=== PATIENT | male | born 1965 | race Caucasian/White ===

== ENCOUNTER → 2018-08-19 | Outpatient (CLI) | payer OTHER ==
[2018-08-19 15:41] LABS: BUN/CREATININE RATIO 13; CREATININE SERUM 1.11 MG/DL (0.60-1.30); GFR ESTIMATED > 60
--- NOTE | 2018-08-19 16:10 | Diagnostic Imaging Report ---
PROCEDURE: US Venous Lower Ext Jose. TECHNIQUE: Multiple real-time grayscale images were obtained over the lower extremities in various projections, bilaterally. Additional duplex Doppler and color Doppler images were also obtained. INDICATION: Leg pain and swelling. FINDINGS: There are no prior studies available for comparison. There is generally good blood flow and compressibility at all levels. There is no sign of deep venous thrombosis. During the course of the exam, a 4.4 x 2.9 x 1.8 cm fluid collection containing a few internal echoes was seen in the popliteal fossa. Most likely, this is a Larson's cyst which has been slightly complicated by infection and/or hemorrhage. IMPRESSION: 1. There is no evidence for deep venous thrombosis. 2. There is a slightly complicated 4.4 x 2.9 x 1.8 cm Larson's cyst. Dictated by: Dictated on workstation # [id number]
--- NOTE | 2018-08-19 16:25 | Diagnostic Imaging Report ---
PROCEDURE: CT angiography of the chest with contrast. TECHNIQUE: Multiple contiguous axial images were obtained through the chest after uneventful bolus administration of intravenous contrast. 2D reconstructed CTA MIP acquisitions were also performed. Auto Exposure Controls were utilized during the CT exam to meet ALARA standards for radiation dose reduction. INDICATION: Hemoptysis. COMPARISON: There are no prior studies available for comparison. FINDINGS: The pulmonary arteries are not fully opacified, but there is no definite defect to suggest a pulmonary embolus. The aorta is not abnormally dilated, and there is no sign of a dissection. The heart size is within normal limits. There are no coronary artery calcifications evident. The lungs are generally clear and well aerated. There is no evidence for failure, pneumonia, or for a pleural effusion to indicate an acute abnormality. There is no parenchymal lung mass identified. There is no mediastinal or hilar adenopathy. The thyroid gland is partially obscured by streak artifact. There is no definite abnormality of the thyroid gland. The sections through the upper abdomen fail to show any sign of an acute abnormality. The liver is of lower density than usually seen. This does suggest fatty metamorphosis. The bone windows are unremarkable for a fracture or for a destructive lesion. IMPRESSION: There is no evidence for an acute cardiopulmonary abnormality. In particular, there is no sign of a dissection or of a pulmonary embolus. Dictated by: Dictated on workstation # [id number]
[2018-08-19 17:03] LABS: ABG BASE EXCESS 0.9 MMOL/L (-2.5-2.5); ABG OXYGEN SATURATION 97 % (94-100); ABG PCO2 37 MMHG (35-45); ABG PH 7.44 (7.37-7.43); ABG PO2 77 MMHG (79-93); ABG TCO2 25.9 MMOL/L (21.0-31.0)
[2018-08-19 17:10] LABS: ALLENS TEST YES-POS; INSPIRED O2 ROOM AIR; PATIENT TEMP 97.9; VENTILATOR NO
== END ==
LOC: RAD 14:56
PROVIDERS: ATTEND Nurse Practitioner Family
DX: J30.9 Allergic rhinitis, unspecified (principal); G47.10 Hypersomnia, unspecified; R04.2 Hemoptysis; M79.89 Other specified soft tissue disorders
CPT/HCPCS: 36415; 71275; 82565; 82805; 84520; 93970

== ENCOUNTER 2018-08-23 12:53 | Outpatient (CLI) | payer OTHER ==
[~2018-08-23] VITALS: Ht 190.5 cm; Wt 115.7 kg
[2018-08-23] MEDS ORDERED: LISI40TA PO (13:11)
[2018-08-23] MEDS ORDERED: METH-288 PO (13:11)
[2018-08-23] MEDS ORDERED: MELO15TA39 PO (13:11)
[2018-08-23] MEDS ORDERED: OMG1KC PO (13:11)
[2018-08-23] MEDS ORDERED: MELA1TAB27 PO (13:11)
[2018-08-23] MEDS ORDERED: DULO30CA48 PO (13:11)
== END 2018-08-23 13:12 ==
LOC: PREOP 12:53
PROVIDERS: ATTEND Internal Medicine Critical Care Medicine
DX: Z01.818 Encounter for other preprocedural examination (principal)

== ENCOUNTER 2018-08-29 09:10 | Day surgery (SDC) | payer OTHER ==
[~2018-08-29] VITALS: Ht 190.5 cm; Wt 115.7 kg
[~2018-08-29 09:10] MED LIST: DULO30CA48 PO; LISI40TA PO; MELA1TAB27 PO; MELO15TA39 PO; METH-288 PO; OMG1KC PO
[2018-08-29] MEDS ORDERED: LIDOCAINE PF 2% 5 ML (XYLOCAINE) VIAL INJ ONE (09:11)
[2018-08-29] MEDS ORDERED: LIDOCAINE JELLY 2% 6 ML SYRINGE TOP ONE (09:11)
[2018-08-29] MEDS ORDERED: LIDOCAINE PF 1% 2 ML VIAL (OR ONLY) IJ ONE (09:11)
--- OUTSIDE RECORDS SUMMARY | 2018-08-29 09:13 | XMS REPORT | CCD ---
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 Name Role Phone FLOYD MURILLO, GISSELL Win Attphys M., TIN NASST S., LAURA NASST R., SARTHAK NASST Vital Signs Vital Sign Value Unit Weight Measured 265 lbs Height 75 in BMI (Body Mass Index) 33.12 kg/m^2 BSA (Body Surface Area) 2.52 m^2 BP Systolic 120 mmHg BP Diastolic 79 mmHg BP Systolic 127 mmHg BP Diastolic 84 mmHg BP Systolic 113 mmHg BP Diastolic 84 mmHg BP Systolic 113 mmHg BP Diastolic 84 mmHg BP Systolic 115 mmHg BP Diastolic 79 mmHg BP Systolic 120 mmHg BP Diastolic 71 mmHg BP Systolic 136 mmHg BP Diastolic 87 mmHg BP Systolic 132 mmHg BP Diastolic 76 mmHg BP Systolic 120 mmHg BP Diastolic 64 mmHg BP Systolic 108 mmHg BP Diastolic 60 mmHg BP Systolic 145 mmHg BP Diastolic 91 mmHg BP Systolic 153 mmHg BP Diastolic 100 mmHg Respiratory Rate 18 bpm Respiratory Rate 18 bpm Respiratory Rate 18 bpm Respiratory Rate 18 bpm Respiratory Rate 18 bpm Respiratory Rate 20 bpm Respiratory Rate 18 bpm Respiratory Rate 18 bpm Respiratory Rate 20 bpm Respiratory Rate 20 bpm Respiratory Rate 18 bpm Respiratory Rate 16 bpm Heart Rate 94 bpm Heart Rate 81 bpm Heart Rate 86 bpm Heart Rate 86 bpm Heart Rate 96 bpm Heart Rate 78 bpm Heart Rate 72 bpm Heart Rate 81 bpm Heart Rate 98 bpm Heart Rate 94 bpm Heart Rate 78 bpm Heart Rate 60 bpm O2 % BldC Oximetry 97 % O2 % BldC Oximetry 98 % O2 % BldC Oximetry 97 % O2 % BldC Oximetry 97 % O2 % BldC Oximetry 95 % O2 % BldC Oximetry 97 % O2 % BldC Oximetry 97 % O2 % BldC Oximetry 97 % O2 % BldC Oximetry 94 % O2 % BldC Oximetry 96 % O2 % BldC Oximetry 93 % O2 % BldC Oximetry 98 % Body Temperature 97.2 degrees Body Temperature 97.6 degrees Body Temperature 97.4 degrees Body Temperature 97.5 degrees Body Temperature 98.3 degrees Body Temperature 97.2 degrees Body Temperature 97 degrees Body Temperature 97.2 degrees Body Temperature 97.3 degrees Body Temperature 97 degrees Body Temperature 97.2 degrees Body Temperature 97.7 degrees Allergies Allergy Code Allergy Type Reaction Status No Known Drug Allergies 0 No known drug allergies Active Procedures Unknown. History of Immunizations Unknown. Problems Unknown. Results Unknown. Medications Medication Code Dose Units Frequency Route Modification Start Date/Time Stop Date/Time DUONEB [IPRATROPIUM/ALBUTEROL] 0.5/3 MG 084482 1 EA TID INHALE 09/18/2013 15:41 D5NS 1000ML IV [PREDEFINED] 19741218 CONT IV IV 09/18/2013 15:41 ~~ D5NS 1000 ML (7941) IV BAG 227079 0290 ML VITAMIN (LH SUB FOR ALL MULTIVITAMINS) 749005 1 TAB DAILY PO 09/18/2013 15:42 DOCUSATE SODIUM 100 MG [COLACE] CAPSULE 0325553 100 MG BID PO 09/18/2013 15:42 PANTOPRAZOLE [PROTONIX] TABLET : 40 MG 932027 40 MG DAILY PO 09/18/2013 15:42 ONDANSETRON [ZOFRAN] INJ 4 MG/2 ML VIAL 844220 4 MG PRN SIVP 09/18/2013 15:42 ACETAMINOPHEN [TYLENOL] TABS 325MG 268115 650 MG PRN PO 09/18/2013 15:42 ACETAMINOPHEN [TYLENOL] SUPPOS : 650MG 987160 650 MG PRN RECTALLY 09/18/2013 15:42 DIPHENHYDRAMINE (BENADRYL) CAP : 50 MG 8015375 50 MG PRN PO 09/18/2013 15:42 DIPHENHYDRAMINE (BENADRYL)INJ : 50MG/ML 7250460 50 MG PRN SIVP 09/18/2013 15:42 TEMAZEPAM [RESTORIL] CAPSULE : 15 MG 880934 15 MG PRN PO 09/18/2013 15:43 HYDROmorphone SYR(DILAUDID)SYR:2MG/ML 535076 0.5 MG PRN IVP 09/18/2013 15:43 NORCO [HYDROCODONE/APAP] 5/325MG TAB 274417 1 TAB PRN PO 09/18/2013 15:43 OXYCONTIN 10 MG TABLET (WHITE) 2770799 10 MG Q12H PO 09/18/2013 15:43 APAP/Hydrocodone Bitartrate 325MG-10MG Oral Tablet 027285 1 TABLET NEEDED EVERY 4 HR BY MOUTH FOR PAIN 01/2014 09:22 Hydrocodone Bit and Acet 500MG-5MG Oral Tablet 059054 1 EACH NEEDED ORAL Hydrocodone Bit and Acet 500MG-5MG Oral Tablet 405391 1 EACH NEEDED ORAL Medications Administered Medication Dose Units Frequency Route Date/ Time of Last Dose DUONEB [IPRATROPIUM/ALBUTEROL] 0.5/3 MG 1 UD TID INHALE 09/18/2013 21:34 D5NS 1000ML IV [PREDEFINED] CONT IV IV 09/19/2013 01:14 CEFAZOLIN [ANCEF] 2 GM IV PREMIX BAG Q6H IVPB 09/19/2013 11:19 VITAMIN (LH SUB FOR ALL MULTIVITAMINS) 1 TAB DAILY PO 09/19/2013 08:36 DOCUSATE SODIUM 100 MG [COLACE] CAPSULE 100 MG BID PO 09/19/2013 08:36 PANTOPRAZOLE [PROTONIX] TABLET : 40 MG 40 MG DAILY PO 09/19/2013 08:36 HYDROmorphone SYR(DILAUDID)SYR:2MG/ML 0.5 MG PRN IVP 09/19/2013 11:19 NORCO [HYDROCODONE/APAP] 5/325MG TAB 1 TAB PRN PO 09/19/2013 11:19 OXYCONTIN 10 MG TABLET (WHITE) 10 MG Q12H PO 09/19/2013 08:36 Encounters Unknown. Social History Smoking Status Code Start Date End Date Never smoker [id number] Patient Decision Aids Unknown. Instructions You were admitted to [facility] on 09/18/2013. You were discharged from [facility] on 09/19/2013. Should you have any questions prior to discharge, please contact a member of your healthcare team. If you have left the hospital and have any questions, please contact your primary care physician. HOME DIET: Regular. ACTIVITY INSTRUCTIONS(list limitations): SLEEP WITH PILLOW UNDER RIGHT SHOULDER; KEEP RIGHT ARM IN ABDUCTION PILLOW SLING; DO NOT LET RIGHT ARM DROP DOWN BY SIDE IF ABDUCTION SLING IS OFF FOR ACTIVITIES OF DAILY LIVING;MAY SHOWER, BUT DO NOT SOAK INCISION; CLEAN INCISION WITH RUBBING ALCOHOL TWICE DAILY; APPLY ICE TO SHOULDER 20-30 MINUTES EVERY 2 HOURS OVER THE WEEKEND RELEVANT CONTACT INFORMATION: Physician:, SCRIPTS WRITTEN BY DOCTOR GIVEN TO PATIENT? Yes, for what?,FARA FOLLOW UP CARE - SEE YOUR PHYSICIAN: YOU HAVE AN APPOINTMENT WITH Sunday AT 11:00AM. PLEASE CALL IF YOU NEED TO CHANGE TIME [phone] CONTACT YOUR PHYSICIAN IF YOU EXPERIENCE ANY: PAIN UNRELIEVED BY PAIN MEDICATIONS; PERSISTENT BLEEDING,DRAINAGE FROM INCISION; FEVER MOR THAN 101; NUMBNESS, TINGLING, SWELLING IN FINGERS; ANY OTHER CONCERNS YOU HAVE INSTRUCTED TO BRING THESE INSTR TO NEXT OFFICE VISIT Yes. INSTRUCTIONS GIVEN AND DISCHARGE TO: Patient. VOICES UNDERSTANDING OF INSTRUCTIONS: Yes. INSTRUCTIONS GIVEN BY (TYPE IN NAME AND DATE) TIN JACKSON RN 09/19/13 Chief Complaint and Reason For Visit Chief Complaint Date of Onset ORT SHOULDER SCOPE RCR RT Function Status Unknown. Plan of Care Unknown. Referral/Transition of Care Unknown.
[2018-08-29] MEDS ORDERED: NS IV 500 ML 500 ML IV PRN (09:21)
[2018-08-29] MEDS ORDERED: NS IV 500 ML 500 ML ONE (09:22)
[2018-08-29] MEDS ORDERED: fentaNYL INJECTION 100 MCG/2 ML AMP IVP ONE (09:30)
[2018-08-29] MEDS ORDERED: MIDAZOLAM 2 MG/2 ML (VERSED) VIAL IVP ONE (09:30)
[2018-08-29 09:47] VITALS: BP 127/90
--- NOTE | 2018-08-29 09:59 | Progress Note-Pre Operative ---
Pre-Operative Progress Note H&P Reviewed The H&P was reviewed, patient examined and no changes noted. Date Seen by Provider: Aug 29, 2018 Time Seen by Provider: 09:57 Date H&P Reviewed: Aug 29, 2018 Time H&P Reviewed: 09:57 Pre-Operative Diagnosis: chronic cough LAVERN DEE DO Aug 29, 2018 09:59
--- NOTE | 2018-08-29 10:00 | Pre-Op Note & Conscious Sedat ---
Pre-Operative Progress Note H&P Reviewed The H&P was reviewed, patient examined and no changes noted. Date H&P Reviewed: Aug 29, 2018 Time H&P Reviewed: 10:00 Conscious Sedation Pre-Proced Time 09:57 ASA Score 3 For ASA 3 and 4: Consider anesthesia and medical clearance. Also, for patients with a history of failed moderate sedation consider anesthesia. Airway Lungs Heart ASA score ASA 1: a normal healthy patient ASA 2: a patient with a mild systemic disease (mid diabetes, controlled hypertension, obesity ASA 3: a patient with a severe systemic disease that limits activity (angina , COPD, prior Myocardial infarction) ASA 4: a patient with an incapacitating disease that is a constant threat to life (CHF, renal failure) ASA 5: a moribund patient not expected to survive 24 hrs. (ruptured aneurysm) ASA 6: a declared brain- patient whose organs are being harvested. For emergent operations, add the letter E after the classification Mallampati Classification Grade 3 Sedation Plan Analgesia, Amnesia, Plan communicated to team members, Discussed options with patient/fam, Discussed risks with patient/fam The patient is an appropriate candidate to undergo the planned procedure, sedation, and anesthesia. The patient immediately re-assessed prior to indication. LAVERN DEE DO Aug 29, 2018 10:00
[2018-08-29] MEDS ORDERED: fentaNYL INJECTION 100 MCG/2 ML AMP ONE ×2 (10:04)
[2018-08-29] MEDS ORDERED: MIDAZOLAM 2 MG/2 ML (VERSED) VIAL ONE ×4 (10:04)
[2018-08-29 10:45] VITALS: BP 144/70
--- NOTE | 2018-08-29 11:35 | Pulmonary Procedures ---
Pulmonary Procedures Date of Procedure Date of Service: Aug 29, 2018 Bronch Bronchoscopy with Fluoroscopy RML bronchoalveolar lavage (BAL), Bilateral bronchial washes and, RML brushes x2. Sterling of armin x 2 was also done. Preop DX Hemoptysis Postop DX: same NO endobronchial mass. airways are inflamed and bled easily. Complications: none- After informed consent obtained and formal time out pt was sedated using Fentanyl and Versed. Bronchoscope was advanced through the nare and vocal cords. 1% lidocaine was used to anesthetize vocal cords, epiglottis, armin, and left/right main stem bronchus. An anatomical tour was undertaken down to the segmental bronchi bilaterally. No endobronchial lesions noted. Bronchoscopy with Fluoroscopy RML bronchoalveolar lavage (BAL), Bilateral bronchial washes and, RML brushes x2. Sterling of armin x 2 was also done. Airways are inflamed and bled easily. Pt tolerated procedure well. No complications noted. Stat CXR is pending. LAVERN DEE DO Aug 29, 2018 11:35
--- NOTE | 2018-08-29 11:37 | Diagnostic Imaging Report ---
INDICATION: Followup post bronchoscopy. Portable chest 11:21 AM FINDINGS: Heart size and pulmonary vascularity are normal. Lungs are clear. There are no effusions or pneumothoraces. IMPRESSION: Unremarkable postbronchoscopy chest. Dictated by: Dictated on workstation # [id number]
[2018-08-29 11:45] VITALS: BP 144/102
[2018-08-29 12:00] VITALS: BP 144/102
--- NOTE | 2018-08-29 19:19 | Diagnostic Imaging Report ---
INDICATION: Fluoroscopy during bronchoscopy. EXAMINATION: Fluoroscopy was provided to Dr. Mccarty during bronchoscopy. FINDINGS: 12 seconds of fluoroscopy was utilized. IMPRESSION: Nephrostomy during bronchoscopy. Dictated by: Dictated on workstation # [id number]
== END 2018-08-29 12:00 | disposition home or self-care (01) ==
LOC: ENDO 09:10
PROVIDERS: ATTEND Internal Medicine Critical Care Medicine
DX: R04.2 Hemoptysis (principal); R06.00 Dyspnea, unspecified; R91.8 Other nonspecific abnormal finding of lung field; J30.9 Allergic rhinitis, unspecified; G47.10 Hypersomnia, unspecified; R94.2 Abnormal results of pulmonary function studies; Z79.899 Other long term (current) drug therapy
CPT/HCPCS: 71045; 87015; 87070; 87101; 87116; 87205; 87206

== ENCOUNTER → 2018-10-09 | Outpatient (CLI) | payer OTHER ==
[~2018-10-09] MED LIST changes: +RT-ALBUTEROL SULF 2.5 MG/3 ML PRE-MIX VIAL INH SCH
== END ==
LOC: RT 14:57 → EDUNIT# 15:00
PROVIDERS: ATTEND Nurse Practitioner Family
DX: R06.00 Dyspnea, unspecified (principal); J30.9 Allergic rhinitis, unspecified; R06.89 Other abnormalities of breathing; R04.2 Hemoptysis; R94.2 Abnormal results of pulmonary function studies; G47.10 Hypersomnia, unspecified; R91.8 Other nonspecific abnormal finding of lung field
CPT/HCPCS: 94060; 94640; 94726; 94729